=== PATIENT | female | born 1940 | race Caucasian/White ===

== ENCOUNTER 2020-03-31 09:43 | Emergency (ER) | payer OTHER, MEDICAID ==
[~2020-03-31] VITALS: Ht 170.2 cm; Wt 86.6 kg
[2020-03-31 09:48] VITALS: BP 129/65
[2020-03-31 14:59] VITALS: BP 121/79
== END 2020-03-31 15:00 | disposition home or self-care (01) ==
LOC: MED 09:43
DX: S00.03XA Contusion of scalp, initial encounter (principal); F03.90 Unspecified dementia, unspecified severity, without behavioral disturbance, psychotic disturbance, mood disturbance, and anxiety; E03.9 Hypothyroidism, unspecified; W19.XXXA Unspecified fall, initial encounter; Y93.89 Activity, other specified; Y92.89 Other specified places as the place of occurrence of the external cause; Y99.8 Other external cause status
CPT/HCPCS: 70450; 99284

== ENCOUNTER 2020-03-31 15:27 | Emergency (ER) | payer OTHER, MEDICAID ==
[~2020-03-31] VITALS: Ht 170.2 cm; Wt 86.6 kg
[2020-03-31 15:37] VITALS: BP 117/62
[2020-03-31 15:46] LABS: BASOPHILS % (AUTO) 0.7 % (0.0-2.0); EOSINOPHILS # (AUTO) 0.1 K/uL (0-0.4); EOSINOPHILS % (AUTO) 0.8 % (0.0-4.0); HEMATOCRIT 38.2 % (36-48); HEMOGLOBIN 12.7 g/dL (12.0-16.0); LYMPHOCYTES # (AUTO) 0.9 K/uL (2.5-16.5); LYMPHOCYTES % (AUTO) 13.2 % (20.5-51.1); MEAN CORPUSCULAR HEMOGLOBIN 30 pg (27-31); MEAN CORPUSCULAR HGB CONC 33 g/dL (33-37); MEAN CORPUSCULAR VOLUME 89.7 fL (80-94); MONOCYTES # (AUTO) 0.3 K/uL (0.8-1.0); MONOCYTES % (AUTO) 4.8 % (1.7-9.3); NEUTROPHILS # (AUTO) 5.7 K/uL (1.8-7.7); NEUTROPHILS % (AUTO) 80.5 % (42.2-75.2); PLATELET COUNT (AUTO) 212 K/uL (140-450); RED BLOOD CELL COUNT(AUTO) 4.26 MIL/uL (4.20-5.40); RED CELL DISTRIBUTION WIDTH 14.8 % (11.6-13.7); WHITE BLOOD COUNT (AUTO) 7.1 K/uL (4.8-10.8)
[2020-03-31 16:18] LABS: ALBUMIN 3.5 g/dL (3.4-5.0); ANION GAP 11.9 (8-16); ASPARTATE AMINOTRANSFERASE 35 U/L (15-37); CARBON DIOXIDE 28.1 mmol/L (21-32); CHLORIDE 104 mmol/L (98-107); CREATININE 1.3 mg/dL (0.6-1.3); GLUCOSE 131 mg/dL (74-106); SODIUM SERUM 141 mmol/L (136-145); TOTAL BILIRUBIN 0.6 mg/dL (0.0-1.0); UREA NITROGEN, BLOOD 23 mg/dL (7-18)
[2020-03-31] MEDS ORDERED: POTASSIUM CHLORIDE 10 MEQ TABER PO ONE (16:35)
[2020-03-31 17:06] LABS: APPEARANCE,URINE CLEAR (CLEAR); BILIRUBIN,URINE NEGATIVE (NEGATIVE); BLOOD, URINE NEGATIVE (NEGATIVE); COLOR,URINE YELLOW (YELLOW); LEUKOCYTE ESTERASE ,URINE TRACE (NEGATIVE); NITRITE, URINE NEGATIVE (NEGATIVE); PH,URINE 7.5 (5.0-9.0); UGLUCOSE NEGATIVE (NEGATIVE)
[2020-03-31] MEDS ORDERED: LORazepam 1 MG TAB PO ONE (17:50)
[2020-03-31] MEDS ORDERED: LORazepam 2 MG/ML VIAL IM ONE (17:50)
[2020-03-31 19:30] VITALS: BP 135/82
== END 2020-03-31 19:30 ==
LOC: MED 15:27
DX: R11.10 Vomiting, unspecified (principal); E87.6 Hypokalemia; R23.1 Pallor; F03.90 Unspecified dementia, unspecified severity, without behavioral disturbance, psychotic disturbance, mood disturbance, and anxiety; E03.9 Hypothyroidism, unspecified
CPT/HCPCS: 36415; 80053; 81003; 85025; 87426; 96372; 99283; J2060

== ENCOUNTER 2020-04-12 09:41 | Emergency (ER) | payer OTHER, MEDICAID ==
[~2020-04-12] VITALS: Ht 170.2 cm; Wt 79.4 kg
--- NOTE | 2020-04-12 09:42 | NUR ---
Patient CIARAN STARK from [facility], transferred to bed 3. RN evaluating patient at bedside.
--- NOTE | 2020-04-12 09:43 | NUR ---
Dr. Sheffield is evaluating the patient at bedside.
[2020-04-12 09:44] VITALS: BP 107/54
--- NOTE | 2020-04-12 09:44 | NUR ---
79 y/o female biba from [facility] for head pain s/p fall. Noticable hematoma noted to posterior head. No laceration/open wound noted. States 6/10 pain, increased with palpation. Unknown loss of consciousness. Per ems facility found patient laying on ground in room, unknown how long she had been on ground, GCS 14, normal for patient. VSS medhx: dementia
--- NOTE | 2020-04-12 09:48 | NUR ---
Pt taken to CT via patricia
[2020-04-12 10:27] LABS: BASOPHILS # (AUTO) 0.1 K/uL (0.00-0.22); BASOPHILS % (AUTO) 0.6 % (0.0-2.0); EOSINOPHILS # (AUTO) 0.1 K/uL (0-0.4); EOSINOPHILS % (AUTO) 0.8 % (0.0-4.0); HEMATOCRIT 38.8 % (36-48); HEMOGLOBIN 12.8 g/dL (12.0-16.0); LYMPHOCYTES # (AUTO) 0.9 K/uL (2.5-16.5); LYMPHOCYTES % (AUTO) 10.4 % (20.5-51.1); MEAN CORPUSCULAR HEMOGLOBIN 30 pg (27-31); MEAN CORPUSCULAR HGB CONC 33 g/dL (33-37); MEAN CORPUSCULAR VOLUME 90.5 fL (80-94); MONOCYTES # (AUTO) 0.4 K/uL (0.8-1.0); MONOCYTES % (AUTO) 5.1 % (1.7-9.3); NEUTROPHILS # (AUTO) 7.2 K/uL (1.8-7.7); NEUTROPHILS % (AUTO) 83.1 % (42.2-75.2); PLATELET COUNT (AUTO) 178 K/uL (140-450); RED BLOOD CELL COUNT(AUTO) 4.29 MIL/uL (4.20-5.40); RED CELL DISTRIBUTION WIDTH 14.9 % (11.6-13.7); WHITE BLOOD COUNT (AUTO) 8.7 K/uL (4.8-10.8)
[2020-04-12 10:39] LABS: ANION GAP 14.6 (8-16); CARBON DIOXIDE 25.6 mmol/L (21-32); CHLORIDE 102 mmol/L (98-107); CREATININE 1.8 mg/dL (0.6-1.3); GLUCOSE 154 mg/dL (74-106); POTASSIUM 4.2 mmol/L (3.5-5.1); SODIUM SERUM 138 mmol/L (136-145); UREA NITROGEN, BLOOD 27 mg/dL (7-18)
[2020-04-12 10:42] LABS: PROTHROMBIN TIME 10.3 secs (10.8-13.4)
[2020-04-12 10:45] LABS: ALBUMIN 3.6 g/dL (3.4-5.0); BILIRUBIN,DIRECT 0.3 mg/dL (0.0-0.3); TOTAL BILIRUBIN 0.6 mg/dL (0.0-1.0)
--- NOTE | 2020-04-12 11:42 | NUR ---
WHEELCHAIR ASSIST PT TO BATHROOM FOR URINE SAMPLE.
--- NOTE | 2020-04-12 11:46 | NUR ---
XR AT BEDSIDE.
--- NOTE | 2020-04-12 13:07 | NUR ---
Covid swab collected and sent to lab.
--- NOTE | 2020-04-12 13:33 | NUR ---
PT REMOVED 3 LEAD ECG AND REFUSED TO KEEP THEM ON.
--- NOTE | 2020-04-12 14:16 | NUR ---
PT ASLEEP RESTING IN BED, RR EVEN AND UNLABORED. BED IN LOWEST POSITON. SIDE RAIL UP X 1
--- NOTE | 2020-04-12 14:26 | NUR ---
Attempted to contact [facility] 3x with no answer.
--- NOTE | 2020-04-12 14:46 | NUR ---
CALLED CHANDLER TOSCANO AT [phone] TO INFORM THAT PTS COVID SWAB IS NEGATIVE, NO RESPONSE.
--- NOTE | 2020-04-12 15:15 | NUR ---
PT GIVEN JUICE AND CRACKERS. SITTING UP IN BED TOLERATING WELL.
--- NOTE | 2020-04-12 15:45 | NUR ---
AMBULATED WITH PT TO BATHROOM, STEADY GAIT.
--- NOTE | 2020-04-12 16:24 | NUR ---
Pt moved to bed 05 due to fall risk
--- NOTE | 2020-04-12 16:44 | NUR ---
PT GIVEN A HAM SANDWICH. PT SITTING UP EATING IN BED.
[2020-04-12 18:02] VITALS: BP 136/71
--- NOTE | 2020-04-12 18:04 | NUR ---
Patient discharged with v/s stable. Written and verbal after care instructions given and explained. Patient verbalized understanding. Ambulance Transport with to home. All questions addressed prior to discharge. Advised to follow up with PMD. Pt transported back to [facility] by [facility] transport.
== END 2020-04-12 18:04 ==
LOC: MED 09:41
DX: S09.90XA Unspecified injury of head, initial encounter (principal); F03.90 Unspecified dementia, unspecified severity, without behavioral disturbance, psychotic disturbance, mood disturbance, and anxiety; Z88.0 Allergy status to penicillin; Z20.828 Contact with and (suspected) exposure to other viral communicable diseases; W19.XXXA Unspecified fall, initial encounter; Y93.89 Activity, other specified; Y92.89 Other specified places as the place of occurrence of the external cause; Y99.8 Other external cause status
CPT/HCPCS: 36415; 70450; 71045; 72170; 80048; 80076; 81002; 84484; 85025; 85610; 93005; 99285

== ENCOUNTER 2020-04-17 14:22 | Emergency (ER) | payer OTHER, MEDICAID ==
[~2020-04-17] VITALS: Ht 167.6 cm; Wt 80.7 kg
--- NOTE | 2020-04-17 14:22 | NUR ---
Patient BIBA BLS, transferred to bed 6. RN evaluating patient at bedside.
[2020-04-17 14:29] VITALS: BP 127/53
--- NOTE | 2020-04-17 14:53 | NUR ---
79 Y/O FEMALE BIBA FROM [facility] FOR GEN WEAKNESS AND LETHARY/LOSS OF APPETITE X1 DAY. PT BASELINE IS AAOX1. FULLY RESPONSIVE, AMBULATORY WITH STEADY GAIT. CAP REFILL <3, NO RESP DISTRESS NOTED AT THIS TIME. NO COUGH AT THIS TIME. PATIENT ABLE TO FOLLOW COMMANDS. PATIENT DENIES ANY PAIN OR DISCOMFORT AT THIS TIME. PMH: DEMENTIA, DEPRESSION ALLERGIES; PENICILLINS
[2020-04-17 15:10] LABS: BASOPHILS # (AUTO) 0.1 K/uL (0.00-0.22); BASOPHILS % (AUTO) 0.7 % (0.0-2.0); EOSINOPHILS % (AUTO) 0.5 % (0.0-4.0); HEMATOCRIT 36.4 % (36-48); HEMOGLOBIN 12.3 g/dL (12.0-16.0); LYMPHOCYTES # (AUTO) 0.6 K/uL (2.5-16.5); LYMPHOCYTES % (AUTO) 7.2 % (20.5-51.1); MEAN CORPUSCULAR HEMOGLOBIN 30 pg (27-31); MEAN CORPUSCULAR HGB CONC 34 g/dL (33-37); MEAN CORPUSCULAR VOLUME 89.4 fL (80-94); MONOCYTES # (AUTO) 0.5 K/uL (0.8-1.0); MONOCYTES % (AUTO) 5.7 % (1.7-9.3); NEUTROPHILS % (AUTO) 85.9 % (42.2-75.2); PLATELET COUNT (AUTO) 205 K/uL (140-450); RED BLOOD CELL COUNT(AUTO) 4.07 MIL/uL (4.20-5.40); WHITE BLOOD COUNT (AUTO) 8.2 K/uL (4.8-10.8)
[2020-04-17 15:34] LABS: ALBUMIN 3.5 g/dL (3.4-5.0); ANION GAP 12.5 (8-16); ASPARTATE AMINOTRANSFERASE 33 U/L (15-37); CARBON DIOXIDE 28.4 mmol/L (21-32); CHLORIDE 102 mmol/L (98-107); CREATININE 1.9 mg/dL (0.6-1.3); GLUCOSE 109 mg/dL (74-106); POTASSIUM 3.9 mmol/L (3.5-5.1); SODIUM SERUM 139 mmol/L (136-145); TOTAL BILIRUBIN 0.6 mg/dL (0.0-1.0); UREA NITROGEN, BLOOD 33 mg/dL (7-18)
[2020-04-17 16:05] LABS: APPEARANCE,URINE CLEAR (CLEAR); BILIRUBIN,URINE 1+ (NEGATIVE); BLOOD, URINE NEGATIVE (NEGATIVE); COLOR,URINE YELLOW (YELLOW); LEUKOCYTE ESTERASE ,URINE 1+ (NEGATIVE); NITRITE, URINE NEGATIVE (NEGATIVE); PH,URINE 5.5 (5.0-9.0); UGLUCOSE NEGATIVE (NEGATIVE)
[2020-04-17 16:11] LABS: RBC,URINE 0-5 /HPF (0-5)
[2020-04-17 18:24] VITALS: BP 121/61
--- NOTE | 2020-04-17 18:24 | NUR ---
Patient discharged with v/s stable. Written and verbal after care instructions given and explained. Patient verbalized understanding. AMBULANCE TRANSPORTATION with to long-term. All questions addressed prior to discharge. Advised to follow up with PMD.
== END 2020-04-17 18:24 ==
LOC: MED 14:22
DX: R53.1 Weakness (principal); N28.9 Disorder of kidney and ureter, unspecified; F03.90 Unspecified dementia, unspecified severity, without behavioral disturbance, psychotic disturbance, mood disturbance, and anxiety; Z88.0 Allergy status to penicillin
CPT/HCPCS: 36415; 71045; 80053; 81001; 85025; 87086; 99284

== ENCOUNTER 2020-07-01 10:08 | Emergency (ER) | payer OTHER, MEDICAID ==
[~2020-07-01] VITALS: Ht 165.1 cm; Wt 95.3 kg
--- NOTE | 2020-07-01 10:11 | NUR ---
BIBA TAKEN TO BED 7
[2020-07-01 10:14] VITALS: BP 118/41
[2020-07-01] MEDS ORDERED: SERT50TA PO (10:17)
[2020-07-01] MEDS ORDERED: QUET100T PO (10:17)
[2020-07-01] MEDS ORDERED: LOVA10TA2 PO (10:17)
[2020-07-01] MEDS ORDERED: MECL-303 PO (10:17)
[2020-07-01] MEDS ORDERED: CHOL500040 PO (10:17)
[2020-07-01] MEDS ORDERED: SYN.05 PO (10:17)
[2020-07-01 10:39] LABS: BASOPHILS % (AUTO) 0.6 % (0.0-2.0); EOSINOPHILS # (AUTO) 0.1 K/uL (0-0.4); HEMATOCRIT 27.6 % (36-48); HEMOGLOBIN 9.2 g/dL (12.0-16.0); LYMPHOCYTES # (AUTO) 0.7 K/uL (2.5-16.5); LYMPHOCYTES % (AUTO) 15.4 % (20.5-51.1); MEAN CORPUSCULAR HEMOGLOBIN 31 pg (27-31); MEAN CORPUSCULAR HGB CONC 33 g/dL (33-37); MEAN CORPUSCULAR VOLUME 93.4 fL (80-94); MONOCYTES # (AUTO) 0.3 K/uL (0.8-1.0); MONOCYTES % (AUTO) 6.9 % (1.7-9.3); NEUTROPHILS # (AUTO) 3.6 K/uL (1.8-7.7); NEUTROPHILS % (AUTO) 75.1 % (42.2-75.2); PLATELET COUNT (AUTO) 190 K/uL (140-450); RED BLOOD CELL COUNT(AUTO) 2.95 MIL/uL (4.20-5.40); RED CELL DISTRIBUTION WIDTH 14.8 % (11.6-13.7); WHITE BLOOD COUNT (AUTO) 4.8 K/uL (4.8-10.8)
[2020-07-01 11:02] LABS: ASPARTATE AMINOTRANSFERASE 25 U/L (15-37); CARBON DIOXIDE 26.9 mmol/L (21-32); CHLORIDE 108 mmol/L (98-107); CREATININE 1.1 mg/dL (0.6-1.3); GLUCOSE 87 mg/dL (74-106); POTASSIUM 3.9 mmol/L (3.5-5.1); SODIUM SERUM 143 mmol/L (136-145); TOTAL BILIRUBIN 0.4 mg/dL (0.0-1.0); UREA NITROGEN, BLOOD 21 mg/dL (7-18)
[2020-07-01 11:18] LABS: PROTHROMBIN TIME 9.9 secs (10.8-13.4)
[2020-07-01] MEDS ORDERED: QUEtiapine FUMARATE 100 MG TAB PO STA (13:58)
[2020-07-01] MEDS ORDERED: QUEtiapine FUMARATE 25 MG TAB ONE (14:02)
[2020-07-01] MEDS ORDERED: CRUSHER, PILL MC ONE (14:10)
--- NOTE | 2020-07-01 15:36 | NUR ---
PATIENT MOVED TO BED 6
[2020-07-01] MEDS ORDERED: SERTRALINE 50 MG TAB PO SCH (19:40)
--- NOTE | 2020-07-01 20:00 | NUR ---
CALL TO DAUGHTER AND MESSAGE LEFT REGARDING PTS DISCHARGE. NO ANSWER, MESSAGE LEFT
--- NOTE | 2020-07-01 20:15 | NUR ---
ASSISTED UP TO BSC, VOIDED LARGE AMOUNT LEROY COLORED URINE. BACK TO BED, MADE COMFORTABLE
[2020-07-01 21:00] VITALS: BP 138/69
--- NOTE | 2020-07-01 21:12 | NUR ---
CALLED [facility] TOSCANO TO INFORM PATIENT WILL BE RETURNING.
--- NOTE | 2020-07-01 21:13 | NUR ---
Patient discharged with v/s stable. Written and verbal after care instructions given and explained. Ambulatory with steady gait. All questions addressed prior to discharge. Advised to follow up with PMD.
== END 2020-07-01 21:13 | disposition home or self-care (01) ==
LOC: MED 10:08
DX: S80.01XA Contusion of right knee, initial encounter (principal); Z20.822 Contact with and (suspected) exposure to COVID-19; F03.90 Unspecified dementia, unspecified severity, without behavioral disturbance, psychotic disturbance, mood disturbance, and anxiety; E07.9 Disorder of thyroid, unspecified; W18.39XA Other fall on same level, initial encounter; Y93.89 Activity, other specified; Y92.89 Other specified places as the place of occurrence of the external cause; Y99.8 Other external cause status
CPT/HCPCS: 36415; 73562; 73590; 80053; 83605; 85025; 85610; 87040; 93971; 99285

== ENCOUNTER 2020-12-22 13:28 | Emergency (ER) | payer OTHER, MEDICAID ==
[~2020-12-22] VITALS: Ht 152.4 cm; Wt 63.5 kg
[~2020-12-22 13:28] MED LIST: ACET-10509 PO; CHOL500040 PO; DOCU-299 PO; KEN.025C TP; LOVA10TA2 PO; NYST100022 PO; QUET100T PO; QUET50TA PO; ROC2I IV; SERT50TA PO; SYN.05 PO
--- NOTE | 2020-12-22 13:28 | NUR ---
Radhames WAGONER via gurney to bed 07.
[2020-12-22 13:33] VITALS: BP 111/91
--- NOTE | 2020-12-22 13:33 | NUR ---
80 Y/O FEMALE CIARAN FROM [facility]. PER EMS PT IS NON COMPLIANT MEDICATIONS AND BECOMING MORE AGGRESSIVE. A&OX1. GCS 14. MEDHX: DEMENTIA, CHF, HYPERTHRYOIDISM, HYPERLIPIDEMIA ALLERGIES: PENICILLIN.
[2020-12-22] MEDS ORDERED: HALOPERIDOL IM 5 MG/ML VIAL ONE (13:42)
[2020-12-22] MEDS ORDERED: HALOPERIDOL IM 5 MG/ML VIAL IM ONE ×2 (13:45→17:05)
--- NOTE | 2020-12-22 13:57 | NUR ---
ERMD AT BEDSIDE EXAMINING PT
--- NOTE | 2020-12-22 14:11 | NUR ---
JUKEBOX ROUTE DRIVER AT PT BEDSIDE.
[2020-12-22 14:31] LABS: BASOPHILS % (AUTO) 0.5 % (0.0-2.0); EOSINOPHILS # (AUTO) 0.1 K/uL (0-0.4); EOSINOPHILS % (AUTO) 1.1 % (0.0-4.0); HEMATOCRIT 36.6 % (36-48); HEMOGLOBIN 12.3 g/dL (12.0-16.0); LYMPHOCYTES # (AUTO) 0.9 K/uL (2.5-16.5); LYMPHOCYTES % (AUTO) 13.8 % (20.5-51.1); MEAN CORPUSCULAR HEMOGLOBIN 31 pg (27-31); MEAN CORPUSCULAR HGB CONC 34 g/dL (33-37); MEAN CORPUSCULAR VOLUME 91.8 fL (80-94); MONOCYTES # (AUTO) 0.3 K/uL (0.8-1.0); MONOCYTES % (AUTO) 5.2 % (1.7-9.3); NEUTROPHILS % (AUTO) 79.4 % (42.2-75.2); PLATELET COUNT (AUTO) 191 K/uL (140-450); RED BLOOD CELL COUNT(AUTO) 3.99 MIL/uL (4.20-5.40); RED CELL DISTRIBUTION WIDTH 14.4 % (11.6-13.7); WHITE BLOOD COUNT (AUTO) 6.3 K/uL (4.8-10.8)
[2020-12-22 14:46] LABS: ALBUMIN 3.5 g/dL (3.4-5.0); ANION GAP 9.9 (8-16); ASPARTATE AMINOTRANSFERASE 41 U/L (15-37); CARBON DIOXIDE 30.9 mmol/L (21-32); CHLORIDE 105 mmol/L (98-107); CREATININE 1.1 mg/dL (0.6-1.3); GLUCOSE 126 mg/dL (74-106); POTASSIUM 3.8 mmol/L (3.5-5.1); SODIUM SERUM 142 mmol/L (136-145); TOTAL BILIRUBIN 0.3 mg/dL (0.0-1.0); UREA NITROGEN, BLOOD 27 mg/dL (7-18)
[2020-12-22] MEDS ORDERED: QUEtiapine FUMARATE 100 MG TAB PO STA (15:51)
--- NOTE | 2020-12-22 16:31 | NUR ---
SPOKE WITH CARMEN MCKAY NO TRANSPORT AVAILABLE AT THIS TIME
--- NOTE | 2020-12-22 16:52 | NUR ---
PT UNABLE TO GIVE URINE AT THIS TIME
--- NOTE | 2020-12-22 17:00 | NUR ---
PT WALKING OUT OF BED, AGGRESSIVE, YELLING. REDIRECTED PT TO ROOM, NON COMPLIANT. REFUSING TO GO BACK BED. ERMD MADE AWARE.
[2020-12-22] MEDS ORDERED: diphenhydrAMINE 50 MG/ML VIAL IM ONE (17:05)
[2020-12-22] MEDS ORDERED: LORazepam 2 MG/ML VIAL IM ONE (17:05)
--- NOTE | 2020-12-22 19:20 | NUR ---
Pt report given to VANNA LIMON. Transfer of care at this time.
--- NOTE | 2020-12-22 19:50 | NUR ---
PT IS SLEEPING. OPENS EYES TO SOUND. ALL NEEDS MET AT THIS TIME. BED LOCKED IN LOWEST POSITION, SIDE RAILS X2.
--- NOTE | 2020-12-22 21:50 | NUR ---
PT IS SLEEPING. EQUAL RISE AND FALL OF CHEST WALL. VSS. OPENS EYES TO SOUND. BED LOCKED IN LOWEST POSITION, SIDE RAILSX2.
--- NOTE | 2020-12-22 23:30 | NUR ---
PT URINATED. CLEANED AND CHNAGED PT'S GOWN AND SHEETS.
--- NOTE | 2020-12-23 02:49 | NUR ---
PT IS SLEEPING. EQUAL RISE AND FALL OF CHEST WALL. VSS. OPENS EYES TO SOUND. BED LOCKED IN LOWEST POSITION, SIDE RAILSX2.
--- NOTE | 2020-12-23 04:08 | NUR ---
PT IS SLEEPING. EQUAL RISE AND FALL OF CHEST WALL. VSS. OPENS EYES TO SOUND AND TOUCH. BED LOCKED IN LOWEST POSITION, SIDE RAILSX2.
--- NOTE | 2020-12-23 04:16 | NUR ---
PROVIDED PT WITH EXTRA BLANKETS.
--- NOTE | 2020-12-23 05:17 | NUR ---
REMEDIOS VALENZUELA, SON OF PT CALLED. UPDATED ON PT'S CONDITION. [phone].
--- NOTE | 2020-12-23 06:00 | NUR ---
PT URINATED. CLEANED PT AND CHANGED SHEETS AND DIAPER. PERFORMED STRAIGHT CATH FOR URINE COLLECTION USING STERILE TECHNIQUE, 400 CC RETURN. PT TOLERATED. VSS. BED LOCKED IN LOWEST POSITION, SIDE RAILS X2.
--- NOTE | 2020-12-23 06:10 | NUR ---
Dr. Navarro examining patient.
--- NOTE | 2020-12-23 06:32 | NUR ---
[facility] IN [place] [phone].
--- NOTE | 2020-12-23 07:18 | NUR ---
REPORT GIVEN TO BRAXTON SIMMONS. TRANSFER OF CARE AT THIS TIME.
--- NOTE | 2020-12-23 07:18 | NUR ---
RECEIVED REPORT, TRANSFER OF CARE RECEIVED AT THIS TIME. PT OBSERVED ASLEEP WITH RR EVEN AND UNLABORED.
[2020-12-23 07:47] LABS: APPEARANCE,URINE CLEAR (CLEAR); BILIRUBIN,URINE NEGATIVE (NEGATIVE); BLOOD, URINE NEGATIVE (NEGATIVE); COLOR,URINE YELLOW (YELLOW); LEUKOCYTE ESTERASE ,URINE NEGATIVE (NEGATIVE); NITRITE, URINE NEGATIVE (NEGATIVE); PH,URINE 7.5 (5.0-9.0); UGLUCOSE NEGATIVE (NEGATIVE)
--- NOTE | 2020-12-23 09:27 | NUR ---
PT RESTING IN BED WITH EVEN AND UNLABORED RESPIRATIONS OBSERVED. WILL CONTINUE TO MONITOR
--- NOTE | 2020-12-23 10:02 | NUR ---
PT REQUESTING TO USE THE BATHROOM, ASSISTED TO BT VIA W/C. PT ASSISTED BACK INTO BED, POSITIONED FOR COMFORT.
--- NOTE | 2020-12-23 12:30 | NUR ---
PT GIVEN LUNCH TRAY. PT EATING QUIETLY IN BED. WILL CONTINUE TO MONITOR
--- NOTE | 2020-12-23 13:57 | NUR ---
PT ATTMEPTING TO GET OUT OF BED, PT REORIENTED AND REPOSITIONED FOR COMFORT, WILL CONTINUE TO MONITOR
[2020-12-23 14:48] VITALS: BP 128/76
--- NOTE | 2020-12-23 15:40 | NUR ---
PT RESTING IN BED WITH EVEN AND UNLABORED RESPIRATIONS OBSERVED. WILL CONTINUE TO MONITOR.
--- NOTE | 2020-12-23 16:30 | NUR ---
CINDI AT BEDSIDE FOR TRANSPORT BACK TO FACILITY
--- NOTE | 2020-12-23 16:32 | NUR ---
GAVE REPORT TO CARMEN LIMON AT [facility] FOR TRANSPORT BACK, ETA 30 MINS
--- NOTE | 2020-12-23 16:35 | NUR ---
Patient discharged with v/s stable. Written and verbal after care instructions given and explained. Patient verbalized understanding. Ambulance Transport with to care home. All questions addressed prior to discharge. Advised to follow up with PMD.
== END 2020-12-23 16:32 | disposition home or self-care (01) ==
LOC: MED 13:28
DX: F03.90 Unspecified dementia, unspecified severity, without behavioral disturbance, psychotic disturbance, mood disturbance, and anxiety (principal); F91.9 Conduct disorder, unspecified; E03.9 Hypothyroidism, unspecified; Z88.0 Allergy status to penicillin; Z79.899 Other long term (current) drug therapy
CPT/HCPCS: 36415; 80053; 81003; 84484; 85025; 96372; 99284; J1200; J1630; J2060

== ENCOUNTER 2021-01-14 14:49 | Emergency (ER) | payer OTHER, MEDICAID ==
[~2021-01-14] VITALS: Ht 167.6 cm; Wt 64.4 kg
[2021-01-14 15:07] VITALS: BP 126/72
--- NOTE | 2021-01-14 15:07 | NUR ---
PT TO CHERYL Thorne
[2021-01-14] MEDS ORDERED: CIPR500T4 PO (15:35)
--- NOTE | 2021-01-14 15:49 | NUR ---
Patient discharged with v/s stable. Written and verbal after care instructions given and explained. Patient alert, oriented and verbalized understanding of instructions. Wheel Chair Assisted with to fpc. All questions addressed prior to discharge. ID band removed. Patient advised to follow up with PMD. Rx of CIPRO given. Patient educated on indication of medication including possible reaction and side effects. Opportunity to ask questions provided and answered.
--- NOTE | 2021-01-14 15:49 | NUR ---
NO NURSE CARE RENDERED
[2021-01-14 15:51] VITALS: BP 126/72
--- NOTE | 2021-01-14 15:57 | NUR ---
CALLED TO GIVE REPORT RN
== END 2021-01-14 15:49 | disposition home or self-care (01) ==
LOC: MED 14:49
DX: N39.0 Urinary tract infection, site not specified (principal); J02.9 Acute pharyngitis, unspecified; F03.90 Unspecified dementia, unspecified severity, without behavioral disturbance, psychotic disturbance, mood disturbance, and anxiety; E06.9 Thyroiditis, unspecified; Z88.0 Allergy status to penicillin; Z79.899 Other long term (current) drug therapy
CPT/HCPCS: 81002; 87086; 99283

== ENCOUNTER 2021-03-21 18:38 | Emergency (ER) | payer OTHER, MEDICAID ==
[~2021-03-21] VITALS: Ht 165.1 cm; Wt 86.2 kg
[~2021-03-21 18:38] MED LIST changes: +CIPR500T4 PO
[2021-03-21 18:39] VITALS: BP 132/78
--- NOTE | 2021-03-21 18:39 | NUR ---
BIBA BLS TO ER BED 7
--- NOTE | 2021-03-21 19:18 | NUR ---
80/F CIARAN FROM [facility]. PER EMS STAFF CALLED 911 STATING PATIENT WAS C/O URINARY SYMPTOMS AND "FOUL SMELLING URINE." WHEN SPEAKING TO PATIENT SHE NOW DENIES ANY URINARY SYMPTOMS OR FOUL SMELLING URINE. PATIENT DOES STATE SHE HAS INTERMITTENT FOOT PAIN, STATING "I HAVE DUCKS ON MY FEET." DENIES PAIN AT THIS TIME. DENIES CP, SOB, FEVER, CHILLS, N/V/D.
--- NOTE | 2021-03-21 19:29 | NUR ---
Pt report given to melania. Transfer of care at this time.
--- NOTE | 2021-03-21 19:29 | NUR ---
Pt report given to ARLENE MCKAY. Transfer of care at this time.
--- NOTE | 2021-03-21 20:03 | NUR ---
LAB IS AT BEDSIDE.
[2021-03-21 20:46] LABS: ANION GAP 11.5 (8-16); CARBON DIOXIDE 30.2 mmol/L (21-32); CHLORIDE 104 mmol/L (98-107); CREATININE 1.2 mg/dL (0.6-1.3); GLUCOSE 105 mg/dL (74-106); POTASSIUM 3.7 mmol/L (3.5-5.1); SODIUM SERUM 142 mmol/L (136-145); UREA NITROGEN, BLOOD 36 mg/dL (7-18)
[2021-03-21 20:47] LABS: BASOPHILS % (AUTO) 0.6 % (0.0-2.0); EOSINOPHILS # (AUTO) 0.1 K/uL (0-0.4); EOSINOPHILS % (AUTO) 1.5 % (0.0-4.0); HEMATOCRIT 35.7 % (36-48); HEMOGLOBIN 12.1 g/dL (12.0-16.0); LYMPHOCYTES # (AUTO) 1.1 K/uL (2.5-16.5); LYMPHOCYTES % (AUTO) 20.3 % (20.5-51.1); MEAN CORPUSCULAR HEMOGLOBIN 31 pg (27-31); MEAN CORPUSCULAR HGB CONC 34 g/dL (33-37); MONOCYTES # (AUTO) 0.3 K/uL (0.8-1.0); MONOCYTES % (AUTO) 5.7 % (1.7-9.3); NEUTROPHILS # (AUTO) 3.9 K/uL (1.8-7.7); NEUTROPHILS % (AUTO) 71.9 % (42.2-75.2); PLATELET COUNT (AUTO) 204 K/uL (140-450); RED BLOOD CELL COUNT(AUTO) 3.92 MIL/uL (4.20-5.40); RED CELL DISTRIBUTION WIDTH 13.2 % (11.6-13.7); WHITE BLOOD COUNT (AUTO) 5.4 K/uL (4.8-10.8)
[2021-03-21 20:55] VITALS: BP 132/78
--- NOTE | 2021-03-21 20:55 | NUR ---
Patient discharged with v/s stable. Written and verbal after care instructions given and explained. Patient verbalized understanding. Ambulatory with steady gait. ARM BAND REMOVED All questions addressed prior to discharge. Advised to follow up with PMD.
--- NOTE | 2021-03-21 21:21 | NUR ---
The patient's care was reviewed and supervised by JANUSZ PRATER RN.
== END 2021-03-21 20:55 | disposition home or self-care (01) ==
LOC: MED 18:38
DX: F03.90 Unspecified dementia, unspecified severity, without behavioral disturbance, psychotic disturbance, mood disturbance, and anxiety (principal); E06.9 Thyroiditis, unspecified; Z88.0 Allergy status to penicillin; Z87.448 Personal history of other diseases of urinary system
CPT/HCPCS: 36415; 80048; 81002; 83605; 85025; 87040; 99283

== ENCOUNTER 2021-09-13 08:47 | Emergency (ER) | payer OTHER, MEDICAID ==
[~2021-09-13] VITALS: Ht 165.1 cm; Wt 86.2 kg
[2021-09-13 08:50] VITALS: BP 148/72
--- NOTE | 2021-09-13 09:35 | NUR ---
PT BIB BLS RUN FROM [facility] C/O BLISTERS TO BOTTOM OF FEET. NOTED BLISTER ON EACH FOOT OPENED. NO DRAINAGE NOTED
[2021-09-13] MEDS ORDERED: CLIN300C52 PO (09:44)
[2021-09-13 09:51] VITALS: BP 124/80
--- NOTE | 2021-09-13 09:52 | NUR ---
REPORT WILBERT DOTSON AT [facility], TRANSPORTATION HERE FOR PT. STABLE ON DC
== END 2021-09-13 09:52 | disposition home or self-care (01) ==
LOC: MED 08:47
DX: L03.116 Cellulitis of left lower limb (principal); L03.115 Cellulitis of right lower limb; F03.90 Unspecified dementia, unspecified severity, without behavioral disturbance, psychotic disturbance, mood disturbance, and anxiety; F20.9 Schizophrenia, unspecified; E03.9 Hypothyroidism, unspecified
CPT/HCPCS: 99283

== ENCOUNTER 2021-10-14 14:19 | Inpatient (IN) | payer OTHER, MEDICAID ==
[~2021-10-14] VITALS: Ht 167.6 cm; Wt 97.1 kg
[~2021-10-14 14:19] MED LIST changes: +CLIN300C52 PO
[2021-10-14 14:28] VITALS: BP 121/58
[2021-10-14 15:03] LABS: BASOPHILS % (AUTO) 0.5 % (0.0-2.0); EOSINOPHILS # (AUTO) 0.1 K/uL (0-0.4); EOSINOPHILS % (AUTO) 2.1 % (0.0-4.0); HEMATOCRIT 33.2 % (36-48); HEMOGLOBIN 11.1 g/dL (12.0-16.0); LYMPHOCYTES % (AUTO) 16.5 % (20.5-51.1); MEAN CORPUSCULAR HEMOGLOBIN 31 pg (27-31); MEAN CORPUSCULAR HGB CONC 33 g/dL (33-37); MEAN CORPUSCULAR VOLUME 93.4 fL (80-94); MONOCYTES # (AUTO) 0.4 K/uL (0.8-1.0); MONOCYTES % (AUTO) 6.4 % (1.7-9.3); NEUTROPHILS # (AUTO) 4.4 K/uL (1.8-7.7); NEUTROPHILS % (AUTO) 74.5 % (42.2-75.2); PLATELET COUNT (AUTO) 188 K/uL (140-450); RED BLOOD CELL COUNT(AUTO) 3.56 MIL/uL (4.20-5.40); RED CELL DISTRIBUTION WIDTH 13.8 % (11.6-13.7); WHITE BLOOD COUNT (AUTO) 5.9 K/uL (4.8-10.8)
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
[2021-10-14 15:33] LABS: ALBUMIN 3.3 g/dL (3.4-5.0); ANION GAP 11.2 (8-16); ASPARTATE AMINOTRANSFERASE 26 U/L (15-37); CARBON DIOXIDE 26.8 mmol/L (21-32); CHLORIDE 104 mmol/L (98-107); GLUCOSE 120 mg/dL (74-106); SODIUM SERUM 138 mmol/L (136-145); TOTAL BILIRUBIN 0.3 mg/dL (0.0-1.0); UREA NITROGEN, BLOOD 39 mg/dL (7-18)
[2021-10-14 15:38] LABS: ACETAMINOPHEN < 0.5 ug/ml (10-30); SALICYLATE < 2.8 mg/dL (2.8-20.0)
[2021-10-14 16:22] LABS: BILIRUBIN,URINE NEGATIVE (NEGATIVE); BLOOD, URINE NEGATIVE (NEGATIVE); COLOR,URINE YELLOW (YELLOW); LEUKOCYTE ESTERASE ,URINE TRACE (NEGATIVE); NITRITE, URINE POSITIVE (NEGATIVE); UGLUCOSE NEGATIVE (NEGATIVE)
[2021-10-14 16:24] LABS: APPEARANCE,URINE SLIGHTLY BLOODY (CLEAR)
--- NOTE | 2021-10-14 16:32 | NUR ---
PT AT REST AND SLEEPING
[2021-10-14 16:43] LABS: BARBITURATE, URINE NEGATIVE ng/ml (NEG <=200); RBC,URINE NONE SEEN /HPF (0-5)
[2021-10-14 16:44] LABS: BENZODIAZEPINE, URINE NEGATIVE ng/mL (NEG <=200); CANNABINOID, URINE NEGATIVE ng/mL (NEG <=50); COCAINE, URINE NEGATIVE ng/mL (NEG <=300); OPIATE, URINE NEGATIVE ng/mL (NEG <=2000); PHENCYCLIDINE SCREEN,URINE NEGATIVE ng/mL (NEG <=25)
--- NOTE | 2021-10-14 17:00 | NUR ---
PT RESTLESS, TRIED GETTING OUT OF BED. PT REDIRECTED TO BED AND PROVIDED WITH APPLE SAUCE. PT EATING IN BED AND IN VIEW
[2021-10-14] MEDS ORDERED: LORazepam 2 MG/ML VIAL IVP ONE (17:15)
[2021-10-14] MEDS ORDERED: LORazepam 2 MG/ML VIAL ONE (17:17)
[2021-10-14] MEDS ORDERED: HALOPERIDOL IM 5 MG/ML VIAL IVP ONE (17:20)
[2021-10-14] MEDS ORDERED: NACL 0.9% 1,000 ML IV ONE (17:40)
[2021-10-14] MEDS ORDERED: cefTRIAXone 1,000 MG VIAL ONE (17:51)
--- NOTE | 2021-10-14 18:39 | NUR ---
AWAITNG FOR CHANDLER CRUZ FOR [id number] HOLD
--- NOTE | 2021-10-14 19:29 | NUR ---
REPORT GIVEN TO SAMIR MCKAY . TRANSFER OF CARE
--- NOTE | 2021-10-14 19:34 | NUR ---
CHANDLER CRUZ AT BEDSIDE WITH PATIENT WRITING A HOLD.
--- NOTE | 2021-10-14 20:39 | NUR ---
pt sleeping quietly . hob elevated . vss. x2 side rails up for safety
--- NOTE | 2021-10-14 21:01 | NUR ---
Gaurav CRUZ at bedside and received final copy of Hold.
--- NOTE | 2021-10-14 21:37 | NUR ---
Patient appears to be resting comfortably in bed. Vital Signs within normal limits. Respirations even and unlabored.
--- NOTE | 2021-10-14 22:37 | NUR ---
PT AMBULATED TO BATHROOM WITH ASSISTANCE
--- NOTE | 2021-10-15 02:26 | NUR ---
Patient appears to be resting comfortably in bed. Vital Signs within normal limits. Respirations even and unlabored. pt sleeping with blanket over her head. Dr. Washington to put vitals q shift
--- NOTE | 2021-10-15 07:17 | NUR ---
Pt report given to NELY HALE. Transfer of care at this time.
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
[2021-10-15] MEDS ORDERED: DOCUSATE SODIUM 100 MG GELCAP PO PRN (08:50)
[2021-10-15] MEDS ORDERED: ACETAMINOPHEN 325 MG TAB PO PRN (08:50)
[2021-10-15] MEDS ORDERED: ONDANSETRON 4 MG/2 ML VIAL IM/IVP PRN (08:50)
[2021-10-15] MEDS ORDERED: ZOLPIDEM 5 MG TAB PO PRN (08:50)
[2021-10-15] MEDS ORDERED: guaiFENesin DM 200/20 MG-10 ML 10 ML UDC PO PRN (08:50)
[2021-10-15] MEDS ORDERED: POTASSIUM CHLORIDE 10 MEQ TABER PO PRN (08:50)
[2021-10-15] MEDS ORDERED: HYDROcodone/APAP 7.5/325 MG 1 TAB PO PRN (08:50)
--- NOTE | 2021-10-15 09:04 | NUR ---
PT BROUGHT TO CT [facility]IA [facility]
[2021-10-15] MEDS ORDERED: cefTRIAXone 1,000 MG VIAL ONE (09:12)
--- NOTE | 2021-10-15 09:19 | NUR ---
PT BACK FROM CT VIA [facility]
[2021-10-15] MEDS: PANTOPRAZOLE 40 MG TABEC PO SCH (09:22)
[2021-10-15] MEDS: NACL 0.9% 1,000 ML IV SCH ×2 (09:28→16:50)
--- NOTE | 2021-10-15 10:09 | NUR ---
PT SOILED WITH URINE AND STOOL. INCONTINENT AND DERIC CARE WAS PERFORMED, LINEN AND GAWN CHANGED.
[2021-10-15 10:27] LABS: CHOL/HDL RATIO 2.5 (1-4.5); FREE T4 (FREE THYROXINE) 0.94 ng/dL (0.76-1.46); MAGNESIUM 2.5 mg/dL (1.8-2.4); PHOSPHORUS 3.4 mg/dL (2.5-4.9); THYROID STIMULATING HORMONE 1.6 uIU/mL (0.34-3.74)
--- NOTE | 2021-10-15 12:25 | NUR ---
HOB ELEVATED, PT EATING LUNCH
--- NOTE | 2021-10-15 12:50 | NUR ---
PT FINISHED WITH 50 PERCENT OF HER LUNCH TRAY.
[2021-10-15] MEDS ORDERED: LORazepam 2 MG/ML VIAL ONE (13:00)
[2021-10-15] MEDS ORDERED: HALOPERIDOL IM 5 MG/ML VIAL ONE (13:02)
--- NOTE | 2021-10-15 13:28 | NUR ---
INCONTINET AND DERIC CARE DONE. LINEN AND GAWN CHANGED.
[2021-10-15] MEDS ORDERED: LORazepam 2 MG/ML VIAL IVP PRN (15:05)
--- NOTE | 2021-10-15 15:48 | NUR ---
SPOKE WITH REMEDIOS [phone] PT SON.
[2021-10-15] MEDS ORDERED: HALOPERIDOL IM 5 MG/ML VIAL IM ONE (17:30)
--- NOTE | 2021-10-15 19:13 | NUR ---
GAVE REPORT TO FELIX MCKAY.
--- NOTE | 2021-10-15 19:28 | NUR ---
PATIENT REMOVED IV, PLACED 4X4 GAUZE
[2021-10-15] MEDS ORDERED: LOVASTATIN 10 MG PO SCH (21:00)
--- NOTE | 2021-10-15 21:00 | NUR ---
PATIENT AGRESSIVE AND GETTING OUT OF BED. SECURITY CALLED
[2021-10-15] MEDS: QUEtiapine FUMARATE 100 MG TAB PO SCH (21:17)
[2021-10-15] MEDS: SERTRALINE 50 MG TAB PO SCH (21:17)
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
--- NOTE | 2021-10-15 21:51 | NUR ---
Jass waggoner in [facility] - 10/15/21 at 2151 by DEMOND PATRIC
--- NOTE | 2021-10-15 22:40 | NUR ---
PATIENT RESTING AND CALM IN BED AT THIS TIME. BED LOW AND LOCKED, ALL NEEDS MET AT THIS TIME.
--- NOTE | 2021-10-16 01:48 | NUR ---
PATIENT RESTING IN BED AT THIS TIME. BED LOW AND LOCKED. ALL NEEDS MET.
--- NOTE | 2021-10-16 05:12 | NUR ---
PATIETN SLEEPING QUIETLY IN BED. ALL NEEDS MET AT THIS TIME.
[2021-10-16 06:55] LABS: ANION GAP 11.6 (8-16); CARBON DIOXIDE 24.3 mmol/L (21-32); CHLORIDE 108 mmol/L (98-107); CREATININE 0.7 mg/dL (0.6-1.3); GLUCOSE 80 mg/dL (74-106); POTASSIUM 3.9 mmol/L (3.5-5.1); SODIUM SERUM 140 mmol/L (136-145); UREA NITROGEN, BLOOD 15 mg/dL (7-18)
--- NOTE | 2021-10-16 07:00 | NUR ---
IV ESTABLISHED, 22G LEFT HAND
[2021-10-16] MEDS: NACL 0.9% 1,000 ML IV SCH ×3 (07:10→18:55)
--- NOTE | 2021-10-16 07:15 | NUR ---
REPORT GIVEN TO NELY VERDUZCO. TRANSFER OF CARE.
[2021-10-16 07:16] LABS: BASOPHILS % (AUTO) 0.5 % (0.0-2.0); EOSINOPHILS # (AUTO) 0.2 K/uL (0-0.4); EOSINOPHILS % (AUTO) 2.1 % (0.0-4.0); HEMATOCRIT 41.4 % (36-48); HEMOGLOBIN 11.8 g/dL (12.0-16.0); LYMPHOCYTES # (AUTO) 1.4 K/uL (2.5-16.5); LYMPHOCYTES % (AUTO) 18.2 % (20.5-51.1); MEAN CORPUSCULAR HEMOGLOBIN 30 pg (27-31); MEAN CORPUSCULAR HGB CONC 29 g/dL (33-37); MEAN CORPUSCULAR VOLUME 104.4 fL (80-94); MONOCYTES # (AUTO) 1.5 K/uL (0.8-1.0); MONOCYTES % (AUTO) 18.8 % (1.7-9.3); NEUTROPHILS # (AUTO) 4.7 K/uL (1.8-7.7); NEUTROPHILS % (AUTO) 60.4 % (42.2-75.2); PLATELET COUNT (AUTO) 158 K/uL (140-450); RED BLOOD CELL COUNT(AUTO) 3.97 MIL/uL (4.20-5.40); RED CELL DISTRIBUTION WIDTH 15.3 % (11.6-13.7); WHITE BLOOD COUNT (AUTO) 7.8 K/uL (4.8-10.8)
--- NOTE | 2021-10-16 07:17 | NUR ---
RECIEVED REPORT FROM NELY WASHINGTON FOR TRANSFER OF CARE.
--- NOTE | 2021-10-16 08:17 | NUR ---
Offered patient her breakfast tray. Patient stated "not now." Left breakfast tray at bedside. Will try again later.
[2021-10-16] MEDS ORDERED: LEVOTHYROXINE 0.05 MG TAB PO SCH (09:00)
--- NOTE | 2021-10-16 09:04 | NUR ---
Incontinent care provided
[2021-10-16] MEDS: SERTRALINE 50 MG TAB PO SCH ×2 (09:13→21:11)
[2021-10-16] MEDS: PANTOPRAZOLE 40 MG TABEC PO SCH (09:14)
[2021-10-16] MEDS: QUEtiapine FUMARATE 100 MG TAB PO SCH ×2 (09:14→21:11)
--- NOTE | 2021-10-16 09:25 | NUR ---
Patient is being fed breakfast.
--- NOTE | 2021-10-16 10:44 | NUR ---
PATIENT HAS BEEN SCREENED AND CATEGORIZED LOW NUTRITION RISK. PATIENT WILL BE SEEN WITHIN 7 DAYS OF ADMISSION. 10/21/[address]
[2021-10-16] MEDS ORDERED: cefTRIAXone 1,000 MG VIAL ONE (11:15)
--- NOTE | 2021-10-16 11:30 | NUR ---
PATIENT WAS ASSISTED TO THE RESTROOM, AMBULATED WITH ASSIST.
--- NOTE | 2021-10-16 11:36 | NUR ---
DR DE PAZ AND RESIDENT AT BEDSIDE EVALUATING PT
[2021-10-16] MEDS: ATORVASTATIN 20 MG TAB PO SCH (11:42)
--- NOTE | 2021-10-16 13:00 | NUR ---
PATIENT WAS OFFERED HER LUNCH, FAMILY IS AT BEDSIDE AND FED PATIENT.
[2021-10-16] MEDS: LORazepam 2 MG/ML VIAL IVP PRN (14:48)
--- NOTE | 2021-10-16 15:50 | NUR ---
PATIENT IS LAYING IN BED ASLEEP, VITAL SIGNS STABLE. FAMILY AT BEDSIDE. NO SIGNS OF DISTRESS NOTED. SI PRECAUTIONS BEING MET.
--- NOTE | 2021-10-16 19:17 | NUR ---
Pt report given to NELY WASHINGTON. Transfer of care at this time.
--- NOTE | 2021-10-16 19:30 | NUR ---
PATIENT CHANGED AND PLACED IN NEW GOWN AND BED LINEN. DERIC CARE DONE. BED LOW AND LOCKED. JARETT SIDE RAILS UP FOR SAFETY. ALL NEEDS MET.
--- NOTE | 2021-10-16 20:03 | NUR ---
PATIENT AGGITATED AND ATTEMPTING TO LEAVE. ATTEMPTED DE-ESCALATING MEASURES. SECURITY CALLED.
--- NOTE | 2021-10-17 | NUR ---
PATIENT SLEEPING IN BED. APPEARS TO BE IN NO DISTRESS, RR EVEN AND UNLABORED. BED LOW AND LOCKED. ALL NEEDS MET AT THIS TIME
[2021-10-17] MEDS: NACL 0.9% 1,000 ML IV SCH ×3 (00:50→16:50)
--- NOTE | 2021-10-17 04:00 | NUR ---
PATIENT SLEEPING IN BED. APPEARS TO BE IN NO DISTRESS. BED LOW AND LOCKED. ALL NEEDS MET AT THIS TIME
--- NOTE | 2021-10-17 06:11 | NUR ---
LAB AT BEDSIDE
--- NOTE | 2021-10-17 07:27 | NUR ---
RECEIVED REPORT FROM NELY WASHINGTON FOR TRANSFER OF CARE.
[2021-10-17 07:36] LABS: BASOPHILS # (AUTO) 0.1 K/uL (0.00-0.22); BASOPHILS % (AUTO) 0.9 % (0.0-2.0); EOSINOPHILS # (AUTO) 0.1 K/uL (0-0.4); EOSINOPHILS % (AUTO) 2.5 % (0.0-4.0); HEMOGLOBIN 12.8 g/dL (12.0-16.0); LYMPHOCYTES # (AUTO) 1.2 K/uL (2.5-16.5); LYMPHOCYTES % (AUTO) 20.9 % (20.5-51.1); MEAN CORPUSCULAR HEMOGLOBIN 31 pg (27-31); MEAN CORPUSCULAR HGB CONC 34 g/dL (33-37); MONOCYTES # (AUTO) 0.5 K/uL (0.8-1.0); MONOCYTES % (AUTO) 8.6 % (1.7-9.3); NEUTROPHILS # (AUTO) 3.9 K/uL (1.8-7.7); NEUTROPHILS % (AUTO) 67.1 % (42.2-75.2); PLATELET COUNT (AUTO) 175 K/uL (140-450); RED BLOOD CELL COUNT(AUTO) 4.09 MIL/uL (4.20-5.40); RED CELL DISTRIBUTION WIDTH 13.6 % (11.6-13.7); WHITE BLOOD COUNT (AUTO) 5.8 K/uL (4.8-10.8)
[2021-10-17 08:01] LABS: ANION GAP 9.4 (8-16); CHLORIDE 108 mmol/L (98-107); CREATININE 0.6 mg/dL (0.6-1.3); GLUCOSE 79 mg/dL (74-106); POTASSIUM 3.4 mmol/L (3.5-5.1); SODIUM SERUM 142 mmol/L (136-145); UREA NITROGEN, BLOOD 12 mg/dL (7-18)
[2021-10-17] MEDS: LEVOTHYROXINE 0.05 MG TAB PO SCH (08:53)
--- NOTE | 2021-10-17 09:00 | NUR ---
OFFERED BREAKFAST TRAY TO PATIENT AND ASSISTED TO EAT BREAKFAST. TOLERATED WELL.
[2021-10-17] MEDS ORDERED: cefTRIAXone 1,000 MG VIAL ONE (09:25)
[2021-10-17] MEDS: ATORVASTATIN 20 MG TAB PO SCH (09:28)
[2021-10-17] MEDS: PANTOPRAZOLE 40 MG TABEC PO SCH (09:29)
[2021-10-17] MEDS: SERTRALINE 50 MG TAB PO SCH ×2 (09:31→20:38)
[2021-10-17] MEDS: QUEtiapine FUMARATE 100 MG TAB PO SCH ×2 (09:33→20:38)
--- NOTE | 2021-10-17 09:45 | NUR ---
PATIENT IS BEING TELEPSYCHED WITH DR. Mary Kate GOMEZ AT BEDSIDE.
--- NOTE | 2021-10-17 10:00 | NUR ---
RECIEVED NEW ORDERS FROM DR. Hartmann FOR START ARICEPT 5MG Q DAILY PO X3 DAYS TO START TODAY. THEN INCREASE ARICEPT TO 10MG PO DAILY AFTER. ALSO A SOCIAL WORKEWR CONSULT FOR CRISTINA-KANG POSSIBLY AT [facility].
[2021-10-17] MEDS ORDERED: POTASSIUM CHLORIDE 10 MEQ TABER PO SCH (10:24)
--- NOTE | 2021-10-17 11:45 | NUR ---
DERIC-CARE PERFORMED
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
--- NOTE | 2021-10-17 12:00 | NUR ---
DC PLANNING LATE ENTRY CALL WAS ON 10/17/2021 AT ABOUT 12:00PM ANGEL LUIS CALL [facility] AT TO GET PLACEMENT SEARCH UPDATE. SPOKE TO OSMANY STATING THAT SHE HAS NOT RECEIVED PATIENT'S CLINICAL PACKET. ANGEL LUIS EXPLAINED TO OSMANY THAT ONE HAS BEEN SEND HOWEVER; THESE [employer]PER[employer]OR [employer] WILL BE SENDING A CLINICAL PACKET JESSICA SO PATIENT PSYCH PLACEMENT SEARCH STARTS PROMPTLY. ANGEL LUIS FAXED PATIENT'S CLINICAL PACKET AT WITH COMPLETED CONFIRMATION AT ABOUT 12:06PM. ANGEL LUIS FAXED PATIENT'S CLINICAL PACKET TO [facility] INTAKE DEPARTMENT AT . ANGEL LUIS ALSO CONTACTED DEE FROM INTAKE DEPARTMENT AT TO CONFIRM THAT PATIENT'S CLINICAL PACKET WAS RECEIVED. DEE CONFIRMED THAT PACKET WAS RECEIVED. STATED THAT THEIR FACILITY HAS BEDS AVAILABLE AND THEY WILL BE REVIEWING PATIENT'S CLINICALS AND CALL BACK IF PATIENT IS ACCEPTED. ANGEL LUIS THANKED HER FOR THE INFORMATION AND ENDED THE CALL. ANGEL LUIS RECEIVED A CALL FROM [facility] INTAKE DEPARTMENT STATING THAT PATIENT HAS HAS BEEN ACCEPTED TO THEIR FACILITY AND SHE CAN BE TRANSPORTED AFTER 2:00PM. PATIENT WILL BE GOING TO UNIT 1, WITH ACCEPTING DR JESUS AT [address] [facility] [id number]. ANGE LLUIS MEET WITH PATIENT'S DAUGHTER [place] KINGJESÚS VALENZUELA AT BEDSIDE TO INFORM HER THAT PATIENT HAS BEEN ACCEPTED TO [facility] AND WILL BE TRANSFER TODAY AT ABOUT 15:00. KING AGREED AND THANKED THESE [employer] FOR THE INFORMATION RESOURCES AND SUPPORT.
--- NOTE | 2021-10-17 12:27 | NUR ---
DC PLANNING: CALLED [facility] SPOKE WITH HOMAR ADMIN DISCUSSED PATIENT BEHAVIOR AND DC PLAN PER YOSVANY PATIENT WAS AT [facility] 2 WKS AGO AND STAYED 2 WEEKS HOWEVER PT'S BEHAVIOR DIDN'T CHANGE AND DANGER TO OTHERS THEY NOTIFIED [facility] AND NO PSYCH CONSULT DONE FOR PATIENT. CM CALLED [facility] SPOKE WITH RUTHIE APONTE STATED TO TRY [facility], [facility] AND [facility]. CALLED [facility] STATED THEY DON'T HAVE [facility]. CALLED [facility] [phone] SPOKE WITH [facility] PT'S CLINICAL AND DR ROBBINS'S CELL PHONE FOR PEER TO PEER . FAXED ALL PAPERWORK TO [phone] PER JAMES MIGHT HAVE A DC LATER THIS AFTERNOON, ONCE THEY REVIEW WILL CALL BACK. CM TO FOLLOW Addendum: 10/17/21 at 1507 by Flory Hutchison RN DC PLANNIN RENEWED BY [facility] CRUZ. FAXED TO [facility]. CALLED [facility] SPOKE WITH JAMES STATED RECEIVED AL THE CLINICALS AND SUBMITTED. AWAITING FOR BED. CM TO FOLLOW Addendum: 10/18/21 at 1424 by Flory Hutchison RN DC PLANNING: CALLED [facility] SPOKE WITH [facility]EE [facility] PAPERWORK. AFTER REVIEWING ACCEPTED PATIENT CAN GO TO UNIT 1. ROOM NUMBER WILL BE ASSIGNED ONCE PT GOES THERE. ACCEPTING DR JESUS. CALLED [facility] SPOKE WITH RUTHIE APONTE NOTIFIED HER [facility] HAS NO [facility] UNIT AND DENIED. [facility] NO BED. RUTHIE PROVIDE THE AUTH FOR TRANSPORT AND NO AUTH NEEDED FOR [facility]. ARRANGED TRANSPORT WITH [facility] BLOOD BANK TECHNICIAN TIME WILL BE 3PM. # TO GIVE REPORT [phone] NOTIFIED RANJAN LIMON.
--- NOTE | 2021-10-17 13:16 | NUR ---
PATIENT WAS OFFERED LUNCH TRAY, FAMILY AT BEDSIDE ASSISTING WITH LUNCH.
[2021-10-17] MEDS: DONEPEZIL 10 MG TAB PO SCH (13:36)
--- NOTE | 2021-10-17 14:00 | NUR ---
[facility] PD AT BEDSIDE.
--- NOTE | 2021-10-17 14:02 | NUR ---
DR. ALMARAZ AT BEDSIDE EVALUATING PATIENT.
[2021-10-17] MEDS: LORazepam 2 MG/ML VIAL IVP PRN (14:45)
--- NOTE | 2021-10-17 16:47 | NUR ---
Patient will be admitted to care of DR. DE PAZ. Admited to MED-SURG. Will go to room 109-B. Belongings list completed. Report to BRAXTON ROY.
--- NOTE | 2021-10-17 16:48 | NUR ---
The patient's care was reviewed and supervised by Brenda Mcdaniel RN.
--- NOTE | 2021-10-17 17:00 | NUR ---
PATIENT ARRIVED VIA GURNEY WHEELED BY SHEET METAL SHOP HELPER AND STUDENT NURSE. PATIENT ASLEEP BUT ABLE TO WAKE UP AND RESPONDS VERBALLY. DAX CARYN GAVE BED SIDE REPORT. IV SITE ON LEFT FORE ARM TARIQ 22. VITAL SIGN BP- 102/53, p- 66- T-97.3, R-18, P- 0/10 OO2 SAT 98% AT ROOM AIR. DAUGHTER IN [place] AT BED SIDE.
[2021-10-17 17:58] VITALS: BP 102/53
--- NOTE | 2021-10-17 19:25 | NUR ---
PATIENT STILL ASLEEP NO DISTRESS NOTED. IV HYDRATION RUNNING AT 125 ML/HOUR ON RIGHT ARM. GAVE REPORT TO DEER FARM WORKER NURSE FOR CONTINUITY OF CARE.
--- NOTE | 2021-10-17 19:45 | NUR ---
GET THE REPORT FROM MORNING NURSE, PATIENT IS LYING ON BED, PATIENT IA ALERT ORIENTED X1 , CALL LIGHT IS WITHIN THE REACH, WILL CONTINUE TO MONITOR PATIENT.
[2021-10-17 20:00] VITALS: BP 148/68
--- NOTE | 2021-10-17 20:58 | NUR ---
PATIENT IS LYING ON BED, NO ANY COMPLAIN OF PAIN OR SHORTNESS OF BREATH AT THIS TIME, VITAL SIGN IS WITHIN THE NORMAL RANGE, ALL SCHEDULE MEDICATION IS GIVEN PER DOCTOR ORDER, WILL CONTINUE TO MONITOR PATIENT.
--- NOTE | 2021-10-18 00:11 | NUR ---
PATIENT IS LYING ON BED, NO ANY COMPLAIN OF PAIN OR SHORTNESS OF BREATH AT THIS TIME, CALL LIGHT IS WITHIN THE REACH, WILL CONTINUE TO MONITOR PATIENT
[2021-10-18] MEDS: NACL 0.9% 1,000 ML IV SCH ×2 (00:40→08:50)
[2021-10-18 04:00] VITALS: BP 110/49
--- NOTE | 2021-10-18 04:16 | NUR ---
PATIENT IS LYING ON BED, VITAL SIGN IS WITHIN THE NORMAL RANGE , NO ANY COMPLAIN OF PAIN OR SHORTNESS OF BREATH AT THIS TIME,CALL LIGHT IS WITHIN THE REACH, WILL CONTINUE TO MONITOR PATIENT.
[2021-10-18] MEDS: LEVOTHYROXINE 0.05 MG TAB PO SCH (05:46)
--- NOTE | 2021-10-18 05:48 | NUR ---
ALL SCHEDULE MEDICATION IS GIVEN PER DOCTOR ORDER, CALL LIGHT IS WITHIN THE REACH, WILL CONTINUE TO MONITOR PATIENT.
--- NOTE | 2021-10-18 07:24 | NUR ---
GAVE REPORT TO MORNING NURSE RANJAN FOR CONTINUOS OF CARE, PATIENT IS STABLE.
[2021-10-18 07:28] LABS: BASOPHILS % (AUTO) 0.6 % (0.0-2.0); EOSINOPHILS # (AUTO) 0.2 K/uL (0-0.4); EOSINOPHILS % (AUTO) 3.7 % (0.0-4.0); HEMATOCRIT 30.8 % (36-48); HEMOGLOBIN 10.3 g/dL (12.0-16.0); LYMPHOCYTES # (AUTO) 1.1 K/uL (2.5-16.5); LYMPHOCYTES % (AUTO) 22.2 % (20.5-51.1); MEAN CORPUSCULAR HEMOGLOBIN 31 pg (27-31); MEAN CORPUSCULAR HGB CONC 34 g/dL (33-37); MEAN CORPUSCULAR VOLUME 92.8 fL (80-94); MONOCYTES # (AUTO) 0.3 K/uL (0.8-1.0); MONOCYTES % (AUTO) 6.1 % (1.7-9.3); NEUTROPHILS # (AUTO) 3.3 K/uL (1.8-7.7); NEUTROPHILS % (AUTO) 67.4 % (42.2-75.2); PLATELET COUNT (AUTO) 196 K/uL (140-450); RED BLOOD CELL COUNT(AUTO) 3.32 MIL/uL (4.20-5.40); WHITE BLOOD COUNT (AUTO) 4.9 K/uL (4.8-10.8)
[2021-10-18 07:41] LABS: ANION GAP 11.2 (8-16); CARBON DIOXIDE 24.5 mmol/L (21-32); CHLORIDE 112 mmol/L (98-107); CREATININE 0.8 mg/dL (0.6-1.3); GLUCOSE 61 mg/dL (74-106); POTASSIUM 3.7 mmol/L (3.5-5.1); SODIUM SERUM 144 mmol/L (136-145); UREA NITROGEN, BLOOD 15 mg/dL (7-18)
[2021-10-18 08:00] VITALS: BP 129/65
--- NOTE | 2021-10-18 08:00 | NUR ---
RECEIVED REPORT FROM SPINE SURGEON FOR CONTINUITY OF CARE. PATIENT ALERT AWAKE X2, NOT IN ANY DISTRESS NOTED. REFUSED TO ANSWER QUESTION. WITH IVF ON GOING AND INFUSING WELL. ON 1:1 SITTER AT BEDSIDE. BED ALARM ON. NEEDS ATTENDED. WILL CONTINUE TO MONITOR.
[2021-10-18] MEDS: PANTOPRAZOLE 40 MG TABEC PO SCH (08:33)
[2021-10-18] MEDS: SERTRALINE 50 MG TAB PO SCH (08:34)
[2021-10-18] MEDS: QUEtiapine FUMARATE 100 MG TAB PO SCH (08:34)
[2021-10-18] MEDS: ATORVASTATIN 20 MG TAB PO SCH (08:34)
[2021-10-18] MEDS: DONEPEZIL 10 MG TAB PO SCH (08:35)
--- NOTE | 2021-10-18 09:00 | NUR ---
PATIENT IS A FEEDER, DUE MEDICATION GIVEN AND ABLE TO SWALLOW. WILL CONTINUE TO MONITOR.
--- NOTE | 2021-10-18 12:41 | NUR ---
RECEIVED CALL FROM [facility] AND SPOKE TO LINDA, GAVE SOME INFO REGARDING PATIENT.
[2021-10-18 14:09] VITALS: BP 129/65
[2021-10-18] MEDS ORDERED: DONE10TA10 PO (14:13)
[2021-10-18] MEDS ORDERED: CEPH-588 PO (14:13)
[2021-10-18] MEDS ORDERED: ATOR20TA40 PO (14:13)
--- NOTE | 2021-10-18 14:31 | NUR ---
REPORT CALLED TO BRAXTON MCKEON.
--- NOTE | 2021-10-18 16:00 | NUR ---
[facility] HERE TO LABORATORY SECRETARY PATIENT, PATIENT IS COMBATIVE, WE NEED TO PACIFY HER AND ABLE TO SEAT IN THE STRETCHER.
== END 2021-10-18 16:00 | DRG 689 ==
LOC: MED 14:19 → MMU 10-15 08:14 → MTU 10-17 15:33
PROVIDERS: ADMIT Family Medicine; ATTEND Family Medicine
DX: N39.0 Urinary tract infection, site not specified (principal); G93.41 Metabolic encephalopathy; E44.0 Moderate protein-calorie malnutrition; F03.90 Unspecified dementia, unspecified severity, without behavioral disturbance, psychotic disturbance, mood disturbance, and anxiety; E03.9 Hypothyroidism, unspecified; D64.9 Anemia, unspecified; Z20.822 Contact with and (suspected) exposure to COVID-19; E78.5 Hyperlipidemia, unspecified; E83.51 Hypocalcemia; Z88.0 Allergy status to penicillin; E87.6 Hypokalemia; B96.20 Unspecified Escherichia coli [E. coli] as the cause of diseases classified elsewhere
CPT/HCPCS: 36415; 70450; 71045; 80048; 80053; 80305; 81001; 82150; 83036; 83690; 83735; 83880; 84100; 84436; 84439; 84443; 84479; 84484; 85025; 85610; 85730; 87081; 87086; 87635-QW; 93005; 96361; 96365; 96372; 96375; 96376; 99285; C9803-CS; G0480; G0482; J0696; J1630; J2060; J7030; J7060; Q0092